=== PATIENT | male | born 1995 | race Asian ===

== ENCOUNTER 2017-07-27 20:53 | Inpatient (IN) | payer OTHER ==
[~2017-07-27] VITALS: Ht 175.3 cm; Wt 61.9 kg
[2017-07-27 23:43] LABS: BASOPHIL % 0.7 % (0-2); PLATELET COUNT 225 x10^3mcL (130-400); RED CELL DISTRIBUTION WIDTH 12.9 % (11.5-14.5)
[2017-07-27 23:54] LABS: CALCIUM 8.9 mg/dL (8.5-10.1); CARBON DIOXIDE 28.5 mmol/L (21-32); CHLORIDE SERUM 103 mmol/L (98-107); CREATININE SERUM 0.8 mg/dL (0.7-1.3); GFR1 > 60 mL/min; GLUCOSE SERUM 90 mg/dL (74-106); POTASSIUM SERUM 3.7 mmol/L (3.5-5.1); SODIUM SERUM 140 mmol/L (136-145)
[2017-07-28 00:04] LABS: ALKALINE PHOSPHATASE 60 U/L (46-116); ALT/SGPT 28 U/L (16-63); AST/SGOT 21 U/L (15-37); BILIRUBIN TOTAL 0.7 mg/dL (0.20-1.00); TOTAL PROTEIN, SERUM 7.2 g/dL (6.4-8.2)
[2017-07-28 01:23] LABS: microscopic required? NO
[2017-07-28 01:43] LABS: UA SPECIFIC GRAVITY >=1.030 (1.005-1.035); urine erythrocyte NEGATIVE (NEGATIVE)
[2017-07-28 01:45] LABS: MAGNESIUM 2.1 mg/dL (1.8-2.4); PHOSPHOROUS 4.6 mg/dL (2.5-4.9)
[2017-07-28 01:48] LABS: CHOLESTEROL/HDL RATIO 2.3
[2017-07-28 01:50] LABS: T3 TOTAL 1.21 ng/mL
[2017-07-28 01:59] LABS: AMPHETAMINE QUAL UR NONE DETECTED (NEG <=1000)
[2017-07-28 02:00] LABS: FREE T4 1.22 ng/dL (0.76-1.46); FREE THYROXINE INDEX 3.2 ug/dL (1.4-4.5); T4(THYROXINE) 8.3 ug/dL (4.7-13.3)
[2017-07-28 02:16] VITALS: BP 106/60
[2017-07-28 04:28] VITALS: BP 106/50
[2017-07-28 08:49] LABS: BASOPHIL % 0.6 % (0-2); PLATELET COUNT 194 x10^3mcL (130-400); RED CELL DISTRIBUTION WIDTH 13.2 % (11.5-14.5)
[2017-07-28 08:59] LABS: CALCIUM 8.2 mg/dL (8.5-10.1); CARBON DIOXIDE 26.5 mmol/L (21-32); CHLORIDE SERUM 108 mmol/L (98-107); CREATININE SERUM 0.8 mg/dL (0.7-1.3); GFR1 > 60 mL/min; GLUCOSE SERUM 99 mg/dL (74-106); MAGNESIUM 2.1 mg/dL (1.8-2.4); POTASSIUM SERUM 3.6 mmol/L (3.5-5.1); SODIUM SERUM 141 mmol/L (136-145)
[2017-07-28 09:22] VITALS: BP 125/64
[2017-07-28] MEDS ORDERED: ASPIRIN325 MG PO ×2 (12:52→12:54)
[2017-07-28 13:18] VITALS: BP 125/64
[2017-07-28 14:29] VITALS: BP 108/49
== END 2017-07-28 14:41 | disposition home or self-care (01) | DRG 316 ==
LOC: ED 20:53 → DU 07-28 00:51
PROVIDERS: Emergency Medicine; ADMIT Family Medicine
DX: I31.9 Disease of pericardium, unspecified (principal); E87.8 Other disorders of electrolyte and fluid balance, not elsewhere classified; F12.10 Cannabis abuse, uncomplicated; E83.51 Hypocalcemia; I07.1 Rheumatic tricuspid insufficiency; D64.9 Anemia, unspecified; J45.909 Unspecified asthma, uncomplicated; Z79.899 Other long term (current) drug therapy; Z23 Encounter for immunization; Z82.49 Family history of ischemic heart disease and other diseases of the circulatory system
CPT/HCPCS: 82962; 83880; 84439; 85378; 90732; J1885; J7030; Q0092